=== PATIENT | male | born 1950 | race Caucasian/White ===

== ENCOUNTER 2023-01-06 18:24 | Inpatient (IN) | payer SELFPAY ==
[~2023-01-06] VITALS: Ht 167.6 cm; Wt 67.1 kg
[2023-01-06] MEDS ORDERED: IV NORMAL SALINE 1000 ML BAG IV ONE (18:45)
[2023-01-06 19:17] LABS: HEMATOCRIT 44.2 % (36.7-47.1); MEAN CORPUSCULAR HEMOGLOBIN 30.5 uug (23.8-33.4); MEAN CORPUSCULAR VOLUME 93.3 fL (73.0-96.2); PLATELET COUNT (AUTO) 142 K/uL (152-348)
--- NOTE | 2023-01-06 19:19 | NUR ---
Gave report Alpha RN
--- NOTE | 2023-01-06 19:32 | NUR ---
Recieved report from Vanessa DRAPER.
[2023-01-06 19:34] LABS: ACETAMINOPHEN < 2.0 ug/mL (10-30)
[2023-01-06 19:36] LABS: ETHANOL < 3 MG/DL (0-0)
[2023-01-06 21:10] LABS: ALANINE AMINOTRANSFERASE 21 U/L (16-63); ALKALINE PHOSPHATASE 112 U/L (50-136); ASPARTATE AMINOTRANSFERASE 20 U/L (15-37); BILIRUBIN,DIRECT 0.2 mg/dL (0.0-0.2); BILIRUBIN,TOTAL 0.7 mg/dL (0.2-1.0); CARBON DIOXIDE 24 mmol/L (21-32); CHLORIDE 97 mmol/L (98-107); CREATININE 1.2 mg/dL (0.6-1.3); POTASSIUM 3.1 mmol/L (3.5-5.1); TOTAL PROTEIN, SERUM 6.9 g/dL (6.4-8.2); UREA NITROGEN, BLOOD 25 mg/dL (7-18)
[2023-01-06 21:11] LABS: GLUCOSE 390 mg/dL (74-106)
[2023-01-06 22:16] LABS: LIPASE 24 U/L (73-393)
[2023-01-06] MEDS ORDERED: INSULIN REGULAR, HUMAN 300 UNIT/3 ML VIAL IV ONE (22:30)
[2023-01-06] MEDS ORDERED: POTASSIUM CHLORIDE 20 MEQ TAB.PRT.SR PO ONE (22:30)
[2023-01-06] MEDS ORDERED: DEXTROSE 50% 50 ML DISP.SYRIN IV PRN (22:30)
[2023-01-06] MEDS ORDERED: ACETAMINOPHEN 325 MG TABLET PO PRN (22:30)
[2023-01-06] MEDS ORDERED: hydrALAZINE HCL 20 MG/1 ML VIAL IV PRN (22:30)
[2023-01-06] MEDS ORDERED: ONDANSETRON 4 MG/2 ML VIAL IV PRN (22:30)
[2023-01-06] MEDS ORDERED: LABETALOL HCL 100 MG/20 ML VIAL IV PRN (22:30)
[2023-01-06] MEDS ORDERED: MORPHINE SULFATE 2 MG/1 ML DISP.SYRIN IVP PRN (22:30)
[2023-01-06] MEDS ORDERED: IV 0.9% SODIUM CHLORID+ 20 KCL 1,000 ML IV ONE (22:30)
--- NOTE | 2023-01-06 23:00 | NUR ---
Patient's Daughter is at bedside.
[2023-01-07] VITALS (17 sets, daily range): BP systolic 87–111; BP diastolic 45–72
--- NOTE | 2023-01-07 00:40 | NUR ---
Called third floor for bed #. Stated they would call back.
[2023-01-07] MEDS ORDERED: POTASSIUM CHLORIDE 20 MEQ TAB.PRT.SR ONE (00:54)
[2023-01-07] MEDS ORDERED: KCL IV ONE (00:55)
[2023-01-07] MEDS ORDERED: NS IV ONE (00:55)
[2023-01-07] MEDS ORDERED: INSULIN REGULAR, HUMAN 300 UNIT/3 ML VIAL ONE (00:55)
[2023-01-07] MEDS ORDERED: IV 0.9% SODIUM CHLORID+ 20 KCL 1,000 ML ONE (00:57)
[2023-01-07] MEDS ORDERED: IV NORMAL SALINE 500 ML BAG IV ONE ×2 (02:30→03:30)
[2023-01-07] MEDS ORDERED: PANTOPRAZOLE SODIUM IV 80 MG in IV DEXTROSE 5% 100 ML IV ONE (02:30)
--- NOTE | 2023-01-07 02:45 | NUR ---
Patient had a bowel movement, while changing his diaper I noticed bloody mucous in stool. MD notified.
[2023-01-07 02:50] LABS: *OCCULT BLOOD STOOL POSITIVE (NEGATIVE)
[2023-01-07] MEDS ORDERED: PANTOPRAZOLE SODIUM 40 MG VIAL ONE (02:50)
--- NOTE | 2023-01-07 04:01 | NUR ---
Ryan case briefer from [facility] called back with transfer information. Patient will be going to [facility] room 201 Bed 1. Called for report is . Accepting MD is Dr Warner. [facility] ambulance ETA filler picker is [id number].
[2023-01-07] MEDS ORDERED: NOREPINEPHRINE BITARTRATE 8 MG in IV NORMAL SALINE 242 ML IV PRN ×2 (05:15→05:30)
[2023-01-07] MEDS ORDERED: LIDOCAINE 2% (GLYDO= UROJET) 10 ML JELLY MM ONE ×2 (05:20→05:30)
[2023-01-07 05:25] LABS: HEMATOCRIT 39.3 % (36.7-47.1); MEAN CORPUSCULAR HEMOGLOBIN 30.5 uug (23.8-33.4); MEAN CORPUSCULAR VOLUME 93.4 fL (73.0-96.2); PLATELET COUNT (AUTO) 129 K/uL (152-348)
[2023-01-07] MEDS ORDERED: NOREPINEPHRINE BITARTRATE 4 MG/4 ML VIAL IV ONE (05:34)
[2023-01-07 05:39] LABS: ALANINE AMINOTRANSFERASE 17 U/L (16-63); ALKALINE PHOSPHATASE 80 U/L (50-136); ASPARTATE AMINOTRANSFERASE 17 U/L (15-37); BILIRUBIN,TOTAL 0.6 mg/dL (0.2-1.0); CARBON DIOXIDE 19 mmol/L (21-32); CHLORIDE 103 mmol/L (98-107); GLUCOSE 292 mg/dL (74-106); PHOSPHOROUS 2.5 mg/dL (2.5-4.9); POTASSIUM 3.8 mmol/L (3.5-5.1); TOTAL PROTEIN, SERUM 5.5 g/dL (6.4-8.2); UREA NITROGEN, BLOOD 31 mg/dL (7-18)
[2023-01-07 05:55] LABS: *BLOOD, URINE NEGATIVE (NEGATIVE); *CLARITY,URINE CLEAR (CLEAR); *COLOR,URINE YELLOW (YELLOW); *KETONES,URINE TRACE (NEGATIVE); *UROBILINOGEN,URINE 0.2 E.U./dl (NORMAL); LEUKOCYTE ESTERASE ,URINE NEGATIVE (NEGATIVE); NITRITE, URINE NEGATIVE (NEGATIVE); PH,URINE 5.5 (5.0-8.0)
--- NOTE | 2023-01-07 05:56 | NUR ---
Called CCU and gave report to Lula DRAPER.
[2023-01-07] MEDS ORDERED: CEFEPIME HCL 1 G in IV DEXTROSE 5% 50 ML IV SCH (06:00)
[2023-01-07 06:02] LABS: *BILIRUBIN,URIN 1+ (NEGATIVE); UGLUCOSE 2+ (NEGATIVE)
[2023-01-07 06:06] LABS: *AMPHETAMINE, URINE NEGATIVE (NEGATIVE); *CANNABINOID, URINE NEGATIVE (NEGATIVE); *COCCAINE, URINE NEGATIVE (NEGATIVE); *PHENCYCLIDINE SCREEN,URINE NEGATIVE (NEGATIVE)
--- NOTE | 2023-01-07 06:31 | NUR ---
Transferred patient up to 2nd floor RN Lula made aware of patient's arrival.
--- NOTE | 2023-01-07 06:41 | NUR ---
Received pt. via gurney accompanied by Michael on library monitor, noted to be on Sinus bradycardia rate in the 50's-55's. SBP of 93/47, RR 18-24, body temp of 99.6. Received pt. on NC 2Liters weaning trial done pt. left on room air with saturation of 94%. No c/of pain. Peripheral IV lines patent. No kay catheter, diaper slightly soiled, patient refusing to be changed at this time stating "Later I want to rest". ER nurse at bedside. Will endorse care to incoming shift.
[2023-01-07] MEDS ORDERED: VANCOMYCIN IV 1,000 MG in IV DEXTROSE 5% 250 ML IV ONE ×2 (07:00→09:00)
[2023-01-07] MEDS: BLOOD SUGAR DIAGNOSTIC 1 EACH STRIP VI SCH ×5 (07:00→21:07)
[2023-01-07] MEDS: IV NS 1000 ML 1,000 ML IV SCH ×2 (08:17→10:57)
[2023-01-07] MEDS: CEFEPIME HCL 1 G in IV DEXTROSE 5% 50 ML IV SCH ×3 (08:18→23:29)
[2023-01-07] MEDS: INSULIN REGULAR, HUMAN 300 UNIT/3 ML VIAL SQ PRN ×3 (08:22→17:24)
[2023-01-07] MEDS: DOCUSATE SODIUM 100 MG CAPSULE PO SCH ×2 (08:32→17:00)
[2023-01-07] MEDS: PANTOPRAZOLE SODIUM 40 MG VIAL IV SCH ×2 (08:59→17:20)
[2023-01-07] MEDS: CHOLESTYRAMINE/ASPARTAME 4 G/PKT PACKET PO SCH ×2 (10:21→21:07)
[2023-01-07] MEDS: REMEDY ESSENTIAL ZINC PASTE 113 GM TOP SCH ×2 (10:21→21:07)
[2023-01-07] MEDS: HEPARIN SODIUM,PORCINE 5,000 UNITS/ML VIAL SQ SCH ×2 (10:57→17:20)
--- NOTE | 2023-01-07 12:00 | NUR ---
patient taken down to CT scan of abdomen uneventful trip.
--- NOTE | 2023-01-07 14:00 | NUR ---
Daughter called to inform that the patient is aware he is diabetic. He was informed from a previous admission where he had appendicitis and was informed that he was diabetic. The daughter also stated that he was self medicating with metformin 850mg daily and that his boss would bring it to him from [place] but has stopped taking it for some time because he hasnt asked the boss to bring anymore for some time now. She also mentioned that he was also found down from the previous hospital visit when he had appendicitis.
[2023-01-07] MEDS: VANCOMYCIN IV 1,000 MG in IV DEXTROSE 5% 250 ML IV SCH (21:04)
[2023-01-07] MEDS: METRONIDAZOLE 500 MG/NS 100ML 500 MG in PREMIXED 1 EACH IV SCH (22:47)
[2023-01-08] VITALS (24 sets, daily range): BP systolic 75–124; BP diastolic 36–85
[2023-01-08] MEDS: IV NS 1000 ML 1,000 ML IV SCH ×3 (01:30→17:17)
--- NOTE | 2023-01-08 05:31 | NUR ---
END OF SHIFT SUMMARY Received patient in bed resting. He was easily awoken and he is alert and oriented x 4. Pt is not in pain and he is afibrile. 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 2100 Nighttime meds administered. Pt is resting comfortably. Infectious Disease DIRECTOR OF SAFETY AND SECURITY Isaac is at bedside. Pt had a huge bowel movement, and his heart rate fluctuates from the 30's to the 70's but otherwise he had a relatively uneventful shift. Report endorsed to the day shift RN.
[2023-01-08 05:43] LABS: HEMATOCRIT 37.4 % (36.7-47.1); MEAN CORPUSCULAR HEMOGLOBIN 30.9 uug (23.8-33.4); MEAN CORPUSCULAR VOLUME 93.1 fL (73.0-96.2); PLATELET COUNT (AUTO) 116 K/uL (152-348)
[2023-01-08 05:53] LABS: CARBON DIOXIDE 21 mmol/L (21-32); CHLORIDE 107 mmol/L (98-107); CREATININE 0.8 mg/dL (0.6-1.3); GLUCOSE 207 mg/dL (74-106); POTASSIUM 3.3 mmol/L (3.5-5.1); UREA NITROGEN, BLOOD 24 mg/dL (7-18)
[2023-01-08] MEDS: METRONIDAZOLE 500 MG/NS 100ML 500 MG in PREMIXED 1 EACH IV SCH ×3 (07:00→22:09)
[2023-01-08] MEDS: BLOOD SUGAR DIAGNOSTIC 1 EACH STRIP VI SCH ×4 (08:06→20:48)
[2023-01-08] MEDS: CEFEPIME HCL 1 G in IV DEXTROSE 5% 50 ML IV SCH ×2 (08:06→16:14)
[2023-01-08] MEDS: INSULIN REGULAR, HUMAN 300 UNIT/3 ML VIAL SQ PRN ×4 (08:10→20:50)
[2023-01-08] MEDS: DOCUSATE SODIUM 100 MG CAPSULE PO SCH ×2 (08:21→17:00)
[2023-01-08] MEDS: PANTOPRAZOLE SODIUM 40 MG VIAL IV SCH ×2 (08:44→17:05)
[2023-01-08] MEDS: HEPARIN SODIUM,PORCINE 5,000 UNITS/ML VIAL SQ SCH ×2 (08:46→17:06)
[2023-01-08] MEDS: CHOLESTYRAMINE/ASPARTAME 4 G/PKT PACKET PO SCH ×2 (08:47→20:25)
[2023-01-08] MEDS: REMEDY ESSENTIAL ZINC PASTE 113 GM TOP SCH ×2 (08:48→20:25)
[2023-01-08] MEDS: VANCOMYCIN IV 1,000 MG in IV DEXTROSE 5% 250 ML IV SCH ×2 (08:52→21:26)
[2023-01-08] MEDS ORDERED: IV NORMAL SALINE 500 ML IV ONE (09:00)
[2023-01-08] MEDS: POTASSIUM CHLORIDE 50 ML IV SCH ×2 (11:59→12:47)
--- NOTE | 2023-01-08 18:30 | NUR ---
patient was seen by change management analyst for low heart rate and hypotension. patient received 500ml bolus for dehydration and hypotension, patient was able to maintain off pressors post bolus. blood sugar checks done prior to meals with insulin coverage. minimal episodes of diarrhea today. patient remains on IVF 100ml/hr of NS. no complaints of pain. patient was able to walk around unit today with PT.
[2023-01-09] VITALS (24 sets, daily range): BP systolic 83–137; BP diastolic 29–78
[2023-01-09] MEDS: CEFEPIME HCL 1 G in IV DEXTROSE 5% 50 ML IV SCH ×3 (00:51→16:07)
[2023-01-09 05:25] LABS: MEAN CORPUSCULAR HEMOGLOBIN 30.6 uug (23.8-33.4); MEAN CORPUSCULAR VOLUME 92.5 fL (73.0-96.2); PLATELET COUNT (AUTO) 141 K/uL (152-348)
[2023-01-09 05:43] LABS: CREATININE 0.6 mg/dL (0.6-1.3)
[2023-01-09 06:07] LABS: POTASSIUM 2.8 mmol/L (3.5-5.1)
[2023-01-09] MEDS: METRONIDAZOLE 500 MG/NS 100ML 500 MG in PREMIXED 1 EACH IV SCH ×3 (06:25→22:06)
[2023-01-09] MEDS: IV NS 1000 ML 1,000 ML IV SCH ×3 (06:27→19:54)
[2023-01-09] MEDS: BLOOD SUGAR DIAGNOSTIC 1 EACH STRIP VI SCH ×4 (07:30→21:00)
[2023-01-09] MEDS: INSULIN REGULAR, HUMAN 300 UNIT/3 ML VIAL SQ PRN ×3 (08:47→16:50)
[2023-01-09] MEDS: PANTOPRAZOLE SODIUM 40 MG VIAL IV SCH ×2 (08:50→16:07)
[2023-01-09] MEDS: DOCUSATE SODIUM 100 MG CAPSULE PO SCH ×2 (08:50→16:10)
[2023-01-09] MEDS: HEPARIN SODIUM,PORCINE 5,000 UNITS/ML VIAL SQ SCH ×2 (08:51→16:08)
[2023-01-09] MEDS: REMEDY ESSENTIAL ZINC PASTE 113 GM TOP SCH ×2 (08:52→21:02)
[2023-01-09] MEDS: VANCOMYCIN IV 1,000 MG in IV DEXTROSE 5% 250 ML IV SCH ×2 (08:53→21:01)
[2023-01-09] MEDS: CHOLESTYRAMINE/ASPARTAME 4 G/PKT PACKET PO SCH ×2 (09:06→21:02)
[2023-01-09 09:35] LABS: BILIRUBIN,DIRECT 0.1 mg/dL (0.0-0.2); BILIRUBIN,TOTAL 0.5 mg/dL (0.2-1.0)
[2023-01-09] MEDS: POTASSIUM CHLORIDE 20 MEQ POWDER PACKET PO SCH ×2 (10:42→13:09)
[2023-01-09] MEDS: MIDODRINE HCL 5 MG TABLET PO SCH ×3 (10:43→16:11)
--- NOTE | 2023-01-09 19:00 | NUR ---
received in bed, able to make needs known able to transfer self to bed side commode. educate patient to transfer slowly because patient heart rate is 45 to 76bpm the rest of his vitals signs is stable, room air saturation is 100% able to eat and follow command. blood sugar is 110mg/dl no signs distress, educate patient on how to take his blood sugar at home
[2023-01-10] VITALS (24 sets, daily range): BP systolic 75–141; BP diastolic 45–87
[2023-01-10] MEDS: CEFEPIME HCL 1 G in IV DEXTROSE 5% 50 ML IV SCH ×4 (00:29→23:39)
[2023-01-10] MEDS: METRONIDAZOLE 500 MG/NS 100ML 500 MG in PREMIXED 1 EACH IV SCH ×3 (05:30→21:56)
[2023-01-10] MEDS: IV NS 1000 ML 1,000 ML IV SCH ×2 (05:31→16:31)
[2023-01-10 06:50] LABS: HEMATOCRIT 36.5 % (36.7-47.1); MEAN CORPUSCULAR VOLUME 92.5 fL (73.0-96.2); PLATELET COUNT (AUTO) 146 K/uL (152-348)
[2023-01-10 07:27] LABS: BILIRUBIN,TOTAL 0.4 mg/dL (0.2-1.0); CREATININE 0.6 mg/dL (0.6-1.3)
[2023-01-10] MEDS: BLOOD SUGAR DIAGNOSTIC 1 EACH STRIP VI SCH ×4 (07:30→21:00)
[2023-01-10 08:19] LABS: POTASSIUM 2.8 mmol/L (3.5-5.1)
[2023-01-10] MEDS: VANCOMYCIN IV 1,000 MG in IV DEXTROSE 5% 250 ML IV SCH ×2 (08:25→19:08)
[2023-01-10] MEDS: PANTOPRAZOLE SODIUM 40 MG VIAL IV SCH (08:25)
[2023-01-10] MEDS: INSULIN REGULAR, HUMAN 300 UNIT/3 ML VIAL SQ PRN ×3 (08:28→16:43)
[2023-01-10] MEDS: HEPARIN SODIUM,PORCINE 5,000 UNITS/ML VIAL SQ SCH ×2 (08:28→16:29)
[2023-01-10] MEDS: MIDODRINE HCL 5 MG TABLET PO SCH ×3 (08:29→16:28)
[2023-01-10] MEDS: CHOLESTYRAMINE/ASPARTAME 4 G/PKT PACKET PO SCH ×2 (08:29→21:48)
[2023-01-10] MEDS: DOCUSATE SODIUM 100 MG CAPSULE PO SCH ×2 (08:30→16:30)
[2023-01-10] MEDS: REMEDY ESSENTIAL ZINC PASTE 113 GM TOP SCH ×2 (08:30→21:49)
[2023-01-10] MEDS ORDERED: POTASSIUM CHLORIDE 20 MEQ TAB.PRT.SR PO ONE ×2 (10:00→14:00)
--- NOTE | 2023-01-10 16:15 | NUR ---
PT HEART RATE CONTINUES TO FLUCTUATE 30'S TO 50'S..PT IS ASYMPTOMATIC WHEN HIS HEART RATE IS IN THE 30'S..PT IN NO RESP DISTRESS..DR HOLLEY VISITED WITH PT THIS AM AND TOLD PT HE WILL CONSULT DR REY FOR POSSIBLE PACER PLACEMENT FOR HIS LOW HEART RATE..PT WILL REMAIN IN CCU FOR NOW..
--- NOTE | 2023-01-10 16:20 | NUR ---
PT BOWEL MOVEMENT IS LESS LOOSE AND LESS FREQUENT..POTASSIUM REPLACEMENT GIVEN..PT DAUGHTER AT BEDSIDE..
[2023-01-10] MEDS: PANTOPRAZOLE SODIUM 40 MG TABLET.DR PO SCH (16:28)
[2023-01-10] MEDS: INSULIN REGULAR, HUMAN 300 UNITS/3 ML VIAL SQ PRN (22:29)
[2023-01-11] VITALS (24 sets, daily range): BP systolic 86–153; BP diastolic 46–83
--- NOTE | 2023-01-11 01:15 | NUR ---
(sister) Danae Rey [phone] called. (blue) Berta Tan [phone]. Both will visit . Addendum: 01/11/23 at 0131 by REGISTRY [facility] INPATIENT RN2 RN wrong patient
[2023-01-11 05:57] LABS: HEMATOCRIT 36.4 % (36.7-47.1); MEAN CORPUSCULAR HEMOGLOBIN 31.3 uug (23.8-33.4); MEAN CORPUSCULAR VOLUME 92.5 fL (73.0-96.2); PLATELET COUNT (AUTO) 143 K/uL (152-348)
[2023-01-11 06:09] LABS: ALANINE AMINOTRANSFERASE 13 U/L (16-63); ALKALINE PHOSPHATASE 69 U/L (50-136); ASPARTATE AMINOTRANSFERASE 21 U/L (15-37); BILIRUBIN,TOTAL 0.4 mg/dL (0.2-1.0); CARBON DIOXIDE 19 mmol/L (21-32); CHLORIDE 110 mmol/L (98-107); CREATININE 0.5 mg/dL (0.6-1.3); GLUCOSE 111 mg/dL (74-106); UREA NITROGEN, BLOOD 8 mg/dL (7-18)
[2023-01-11] MEDS: METRONIDAZOLE 500 MG/NS 100ML 500 MG in PREMIXED 1 EACH IV SCH ×3 (06:09→21:44)
[2023-01-11] MEDS: BLOOD SUGAR DIAGNOSTIC 1 EACH STRIP VI SCH ×4 (06:36→20:59)
[2023-01-11] MEDS: VANCOMYCIN IV 1,000 MG in IV DEXTROSE 5% 250 ML IV SCH ×2 (06:38→17:49)
[2023-01-11] MEDS: PANTOPRAZOLE SODIUM 40 MG TABLET.DR PO SCH ×2 (06:42→17:48)
[2023-01-11] MEDS: CHOLESTYRAMINE/ASPARTAME 4 G/PKT PACKET PO SCH ×2 (08:45→20:26)
[2023-01-11] MEDS: CEFEPIME HCL 1 G in IV DEXTROSE 5% 50 ML IV SCH ×3 (08:46→23:21)
[2023-01-11] MEDS: MIDODRINE HCL 5 MG TABLET PO SCH ×3 (08:48→17:00)
[2023-01-11] MEDS: DOCUSATE SODIUM 100 MG CAPSULE PO SCH ×2 (08:49→17:00)
[2023-01-11] MEDS: HEPARIN SODIUM,PORCINE 5,000 UNITS/ML VIAL SQ SCH ×2 (08:49→17:48)
[2023-01-11] MEDS ORDERED: POTASSIUM CHLORIDE 20 MEQ TAB.PRT.SR PO SCH (09:00)
[2023-01-11] MEDS: REMEDY ESSENTIAL ZINC PASTE 113 GM TOP SCH ×2 (09:01→20:29)
--- NOTE | 2023-01-11 10:21 | NUR ---
Attending Dr. Fletcher in the unit to follow up on pt. report given orders to check potassium level lab at 1400 and if potassium level is below 3.5 to give 40 meq. potassium orally once. Order placed ON STANDBY DEPENDING ON K-LAB RESULTS AT 1400 pharmadist [place] notified.
[2023-01-11] MEDS: IV NS 1000 ML 1,000 ML IV SCH ×3 (12:25→22:04)
[2023-01-11] MEDS: NUTRISOURCE FIBER 4 GM PACKET PO SCH ×2 (12:58→17:50)
[2023-01-11] MEDS: INSULIN REGULAR, HUMAN 300 UNIT/3 ML VIAL SQ PRN ×3 (13:00→21:03)
[2023-01-11] MEDS ORDERED: LOSARTAN POTASSIUM 50 MG TABLET PO ONE (15:00)
[2023-01-11] MEDS ORDERED: POTASSIUM CHLORIDE 20 MEQ TAB.PRT.SR PO ONE (15:29)
[2023-01-11] MEDS: POTASSIUM CHLORIDE 20 MEQ TAB.PRT.SR PO SCH (17:49)
[2023-01-11] MEDS: GLUCERNA SHAKE 237 ML CAN PO SCH (17:50)
--- NOTE | 2023-01-11 18:24 | NUR ---
PT WAS SEEN TODAY BY THE ADVANCED MANUFACTURING CONSULTANT..NO NEW ORDERS GIVEN BY HIM.. SPOKE WITH PT'S DAUGHTER ABOUT PT STATUS.. TOLD DAUGHTER HE IS WAITING TO SEE IF POTASSIUM GO UP HIGHER BEFORE HE CONSIDERS PACEMAKER..PT HEART RATE STILL DROP IN THE 30'S AT TIMES..PT DENIES CHEST PAIN OR ANY RESP DISTRESS..
[2023-01-12] VITALS (12 sets, daily range): BP systolic 97–168; BP diastolic 50–83
[2023-01-12] MEDS: VANCOMYCIN IV 1,000 MG in IV DEXTROSE 5% 250 ML IV SCH ×2 (03:14→15:08)
[2023-01-12 05:03] LABS: HEMATOCRIT 35.1 % (36.7-47.1); MEAN CORPUSCULAR HEMOGLOBIN 31.1 uug (23.8-33.4); MEAN CORPUSCULAR VOLUME 92.3 fL (73.0-96.2); PLATELET COUNT (AUTO) 162 K/uL (152-348)
[2023-01-12] MEDS: METRONIDAZOLE 500 MG/NS 100ML 500 MG in PREMIXED 1 EACH IV SCH ×2 (05:04→14:36)
[2023-01-12 05:22] LABS: ALANINE AMINOTRANSFERASE 16 U/L (16-63); ALKALINE PHOSPHATASE 69 U/L (50-136); ASPARTATE AMINOTRANSFERASE 22 U/L (15-37); BILIRUBIN,TOTAL 0.3 mg/dL (0.2-1.0); CARBON DIOXIDE 21 mmol/L (21-32); CHLORIDE 110 mmol/L (98-107); CREATININE 0.6 mg/dL (0.6-1.3); GLUCOSE 152 mg/dL (74-106); POTASSIUM 3.4 mmol/L (3.5-5.1); TOTAL PROTEIN, SERUM 4.8 g/dL (6.4-8.2); UREA NITROGEN, BLOOD 6 mg/dL (7-18)
[2023-01-12] MEDS: BLOOD SUGAR DIAGNOSTIC 1 EACH STRIP VI SCH ×4 (06:56→20:41)
[2023-01-12] MEDS: INSULIN REGULAR, HUMAN 300 UNIT/3 ML VIAL SQ PRN ×2 (07:01→16:31)
[2023-01-12] MEDS: PANTOPRAZOLE SODIUM 40 MG TABLET.DR PO SCH ×2 (07:02→16:40)
--- NOTE | 2023-01-12 07:10 | NUR ---
Received pt. sleeping on laboratory monitor on sinus bradycardia rate in 48-60, no sob or any other discomfort reported. When awake AAOX3.
--- NOTE | 2023-01-12 07:14 | NUR ---
Pt received in bed assisted with BSC activity encourage po intake BS 243 insulin and snack given. at 0300 pt states he wants to go home and explain his medical situation understood and assisted back in bed. 0700 bs 143 insulin given and Pt had a snack. Assisted back in bed and IV Fluids infusing fine. Endorse care to incoming RN
[2023-01-12] MEDS: GLUCERNA SHAKE 237 ML CAN PO SCH ×2 (08:29→16:53)
[2023-01-12] MEDS: DOCUSATE SODIUM 100 MG CAPSULE PO SCH ×2 (08:29→16:40)
--- NOTE | 2023-01-12 08:30 | NUR ---
PT. verbalized c/of against paramedics who pick him up at home denying He was covered in feces, or denying being homeless. Patient with c/o against previous nurses as well, at this time educated and reoriented to nursing care.
[2023-01-12] MEDS: NUTRISOURCE FIBER 4 GM PACKET PO SCH ×3 (08:35→16:53)
[2023-01-12] MEDS: CEFEPIME HCL 1 G in IV DEXTROSE 5% 50 ML IV SCH ×4 (08:35→23:01)
[2023-01-12] MEDS: POTASSIUM CHLORIDE 20 MEQ TAB.PRT.SR PO SCH ×2 (08:39→16:40)
[2023-01-12] MEDS: CHOLESTYRAMINE/ASPARTAME 4 G/PKT PACKET PO SCH ×2 (08:39→20:40)
[2023-01-12] MEDS: REMEDY ESSENTIAL ZINC PASTE 113 GM TOP SCH ×2 (08:42→20:42)
[2023-01-12] MEDS: HEPARIN SODIUM,PORCINE 5,000 UNITS/ML VIAL SQ SCH ×2 (08:42→16:45)
[2023-01-12] MEDS: MIDODRINE HCL 5 MG TABLET PO SCH ×3 (08:59→16:43)
[2023-01-12] MEDS ORDERED: POTASSIUM CHLORIDE 20 MEQ POWDER PACKET PO ONE (09:00)
--- NOTE | 2023-01-12 09:00 | NUR ---
Underground Mine Machinery Mechanic Dr. Burgess in the unit orders to ambulate pt. and monitor heart rate. 15min. later pt. ambulated and ekg monitored results informed and analyzed by Dr. Burgess. who confirmed cardiac clearance and telemetry status. Addendum: 01/12/23 at 1020 by SACHA DANIELLE RN Pt. tolerated procedure well ambulated with steady gait.
[2023-01-12] MEDS: POTASSIUM CHLORIDE 50 ML IV SCH ×4 (09:02→11:08)
[2023-01-12] MEDS ORDERED: ALBUMIN HUMAN 25% 100 ML IV ONE (09:30)
--- NOTE | 2023-01-12 10:13 | NUR ---
Attending physician in the unit to follow up on pt. report given orders to continue with care plan and follow up cardiac clearance, and orders received from Secretary Bookkeeper Dr. Burgess to down-grade pt. to telemetry,.
[2023-01-12] MEDS: IV NS 1000 ML 1,000 ML IV SCH ×2 (10:53→18:01)
--- NOTE | 2023-01-12 11:22 | NUR ---
Telephone report given to rn. Waldron.
--- NOTE | 2023-01-12 11:34 | NUR ---
Pt. taken up to room 304 by Michael Monzon. pt, left AAOx4. vitals signs. stable no c/of pain or sob.
[2023-01-12] MEDS: INSULIN REGULAR, HUMAN 300 UNITS/3 ML VIAL SQ PRN (20:43)
[2023-01-12] MEDS: METRONIDAZOLE 500 MG TABLET PO SCH (21:03)
[2023-01-13] VITALS: BP 135/73
[2023-01-13] MEDS: VANCOMYCIN IV 1,000 MG in IV DEXTROSE 5% 250 ML IV SCH ×2 (01:53→12:08)
[2023-01-13] MEDS: IV NS 1000 ML 1,000 ML IV SCH ×2 (03:56→13:46)
[2023-01-13 04:00] VITALS: BP 136/61
[2023-01-13] MEDS: METRONIDAZOLE 500 MG TABLET PO SCH ×2 (06:08→13:11)
[2023-01-13] MEDS: PANTOPRAZOLE SODIUM 40 MG TABLET.DR PO SCH ×2 (06:09→16:30)
[2023-01-13] MEDS: BLOOD SUGAR DIAGNOSTIC 1 EACH STRIP VI SCH ×3 (06:36→16:22)
[2023-01-13 06:51] LABS: HEMATOCRIT 35.4 % (36.7-47.1); MEAN CORPUSCULAR HEMOGLOBIN 30.7 uug (23.8-33.4); MEAN CORPUSCULAR VOLUME 92.6 fL (73.0-96.2); PLATELET COUNT (AUTO) 186 K/uL (152-348)
[2023-01-13 07:36] LABS: BILIRUBIN,TOTAL 0.6 mg/dL (0.2-1.0); CREATININE 0.6 mg/dL (0.6-1.3); POTASSIUM 4.1 mmol/L (3.5-5.1); TOTAL PROTEIN, SERUM 5.4 g/dL (6.4-8.2)
[2023-01-13] MEDS: INSULIN REGULAR, HUMAN 300 UNIT/3 ML VIAL SQ PRN ×3 (07:53→16:24)
[2023-01-13] MEDS: GLUCERNA SHAKE 237 ML CAN PO SCH (07:55)
[2023-01-13] MEDS: CEFEPIME HCL 1 G in IV DEXTROSE 5% 50 ML IV SCH ×2 (07:55→16:04)
[2023-01-13] MEDS: HEPARIN SODIUM,PORCINE 5,000 UNITS/ML VIAL SQ SCH ×2 (08:17→16:31)
[2023-01-13] MEDS: MIDODRINE HCL 5 MG TABLET PO SCH ×4 (08:17→16:35)
[2023-01-13] MEDS: NUTRISOURCE FIBER 4 GM PACKET PO SCH ×2 (08:18→12:04)
[2023-01-13] MEDS: CHOLESTYRAMINE/ASPARTAME 4 G/PKT PACKET PO SCH (08:18)
[2023-01-13] MEDS: DOCUSATE SODIUM 100 MG CAPSULE PO SCH ×2 (08:18→16:30)
[2023-01-13] MEDS: REMEDY ESSENTIAL ZINC PASTE 113 GM TOP SCH (08:19)
[2023-01-13 11:31] VITALS: BP 145/81
[2023-01-13 15:35] VITALS: BP 124/70
[2023-01-13 16:35] VITALS: BP 138/59
--- NOTE | 2023-01-13 17:10 | NUR ---
pt is alert and oriented x4, no pain or distress noted or verbalized by the patient. His relatives came brought his clothes and shoes and picked him up home. Pt is happy, thankful and ready to go home.
== END 2023-01-13 17:10 | disposition home or self-care (01) | DRG 872 ==
LOC: ER 18:24 → EDBD 18:24 → CCU 22:24 → TELE3 01-12 11:31
PROVIDERS: ADMIT Nurse Practitioner Acute Care
PROC: 05HC33Z Insertion of Infusion Device into Left Basilic Vein, Percutaneous Approach (ICD-10-PCS; principal; 2023-01-07)
PROC: B54NZZA Ultrasonography of Left Upper Extremity Veins, Guidance (ICD-10-PCS; 2023-01-07)
DX: A41.9 Sepsis, unspecified organism (principal); E87.1 Hypo-osmolality and hyponatremia; A09 Infectious gastroenteritis and colitis, unspecified; I44.1 Atrioventricular block, second degree; E11.65 Type 2 diabetes mellitus with hyperglycemia; Z20.822 Contact with and (suspected) exposure to COVID-19; E86.0 Dehydration; E86.1 Hypovolemia; E87.6 Hypokalemia; Z88.0 Allergy status to penicillin; I10 Essential (primary) hypertension; R00.1 Bradycardia, unspecified; F99 Mental disorder, not otherwise specified
CPT/HCPCS: 36415; 71045; 83690; 84100; 84132; 84484; 85025; 86803; 86850; 86900; 86901; 87040; 87177; 87806; 93005; 93307; A4663; A6209; A6213; C1758; C9113; G0378; G0480; J0692; J1644; J1815; J3370; J3480; J3490; J7040; J7050; P9047